=== PATIENT | male | born 1965 | race Caucasian/White ===

== ENCOUNTER 2016-11-21 15:33 | Observation (INO) | payer MEDICAID ==
[~2016-11-21] VITALS: Ht 185.4 cm; Wt 78.6 kg
[2016-11-21] MEDS ORDERED: LISI10TA2 PO (16:06)
[2016-11-21] MEDS ORDERED: ALPR2TAB2 PO (16:06)
[2016-11-21] MEDS ORDERED: TEMA30CA PO (16:06)
[2016-11-21] MEDS ORDERED: CITA40TA12 PO (16:06)
[2016-11-21] MEDS ORDERED: IBUPROFEN 200 MG TABLET PO ONE (16:30)
[2016-11-21] MEDS ORDERED: LORazepam 1MG TABLET PO ONE (16:30)
[2016-11-21] MEDS ORDERED: NICOTINE 14MG/24 HR PATCH.TD24 TD ONE (16:30)
[2016-11-21 16:50] LABS: ASPARTATE AMINO TRANSFERASE 18 U/L (15-37); BLOOD UREA NITROGEN 7 mg/dL (7-18)
[2016-11-21 16:54] LABS: ACETAMINOPHEN < 2 mcg/mL (10-30)
[2016-11-21] MEDS ORDERED: LORazepam 1MG TABLET ONE (17:24)
[2016-11-21] MEDS ORDERED: IBUPROFEN 200 MG TABLET ONE (17:24)
[2016-11-21 17:43] LABS: DAU SCREEN DISCLAIMER
[2016-11-21] MEDS ORDERED: ACETAMINOPHEN 325 MG TABLET ONE (19:55)
[2016-11-21] MEDS ORDERED: ACETAMINOPHEN 325 MG TABLET PO ONE (20:00)
[2016-11-21] MEDS ORDERED: NICOTINE 14MG/24 HR PATCH.TD24 ONE (20:02)
[2016-11-21] MEDS ORDERED: ACETAMINOPHEN 325 MG TABLET PO PRN (23:00)
[2016-11-21] MEDS ORDERED: ENOXAPARIN 40 MG/0.4 ML SQ SCH (23:00)
[2016-11-21] MEDS: NICOTINE 14MG/24 HR PATCH.TD24 TD SCH (23:00)
[2016-11-21] MEDS ORDERED: ONDANSETRON ODT 4 MG PO PRN (23:00)
[2016-11-21 23:17] VITALS: BP 152/96
[2016-11-21] MEDS ORDERED: TEMAZEPAM 15 MG CAPSULE ONE (23:30)
[2016-11-22 08:00] VITALS: BP 146/85
[2016-11-22] MEDS: FOLIC ACID 1 MG TABLET PO SCH (09:15)
[2016-11-22] MEDS: MULTIVITAMIN 1 TABLET PO SCH (09:16)
[2016-11-22] MEDS: THIAMINE 100MG TABLET PO SCH (09:16)
[2016-11-22] MEDS: LISINOPRIL 10 MG TABLET PO SCH (09:16)
[2016-11-22] MEDS: CITALOPRAM 20 MG TABLET PO SCH (09:16)
[2016-11-22] MEDS: ALPRazolam 1MG TABLET PO PRN (12:26)
[2016-11-22 20:17] VITALS: BP 115/76
[2016-11-22] MEDS: ENOXAPARIN 40 MG/0.4 ML SQ SCH (21:00)
[2016-11-22] MEDS ORDERED: TEMAZEPAM 15 MG CAPSULE ONE (21:37)
[2016-11-22] MEDS: NICOTINE 14MG/24 HR PATCH.TD24 TD SCH (23:00)
[2016-11-23] MEDS: THIAMINE 100MG TABLET PO SCH (08:31)
[2016-11-23] MEDS: MULTIVITAMIN 1 TABLET PO SCH (08:31)
[2016-11-23] MEDS: CITALOPRAM 20 MG TABLET PO SCH (08:32)
[2016-11-23] MEDS: LISINOPRIL 10 MG TABLET PO SCH (08:32)
[2016-11-23] MEDS: FOLIC ACID 1 MG TABLET PO SCH (08:32)
[2016-11-23] MEDS: ALPRazolam 1MG TABLET PO PRN ×3 (08:36→21:08)
[2016-11-23 08:39] VITALS: BP 123/75
[2016-11-23 20:28] VITALS: BP 106/67
[2016-11-23] MEDS ORDERED: TEMAZEPAM 15 MG CAPSULE ONE (20:56)
[2016-11-23] MEDS: ENOXAPARIN 40 MG/0.4 ML SQ SCH (21:00)
[2016-11-23] MEDS: NICOTINE 14MG/24 HR PATCH.TD24 TD SCH (21:04)
[2016-11-23] MEDS: TEMAZEPAM 30 MG CAPSULE PO PRN (21:06)
[2016-11-24] MEDS: THIAMINE 100MG TABLET PO SCH (08:21)
[2016-11-24] MEDS: FOLIC ACID 1 MG TABLET PO SCH (08:22)
[2016-11-24] MEDS: LISINOPRIL 10 MG TABLET PO SCH (08:22)
[2016-11-24] MEDS: MULTIVITAMIN 1 TABLET PO SCH (08:22)
[2016-11-24] MEDS: CITALOPRAM 20 MG TABLET PO SCH (08:22)
[2016-11-24] MEDS: ALPRazolam 1MG TABLET PO PRN ×3 (08:26→20:19)
[2016-11-24 08:27] VITALS: BP 157/88
[2016-11-24 08:32] VITALS: BP 111/73
[2016-11-24] MEDS ORDERED: TEMAZEPAM 15 MG CAPSULE ONE (20:16)
[2016-11-24] MEDS: TEMAZEPAM 30 MG CAPSULE PO PRN (20:17)
[2016-11-24] MEDS: NICOTINE 14MG/24 HR PATCH.TD24 TD SCH (20:30)
[2016-11-24] MEDS: ENOXAPARIN 40 MG/0.4 ML SQ SCH (21:00)
[2016-11-24 22:13] VITALS: BP 104/57
[2016-11-25 08:00] VITALS: BP 117/75
[2016-11-25] MEDS: FOLIC ACID 1 MG TABLET PO SCH (08:48)
[2016-11-25] MEDS: CITALOPRAM 20 MG TABLET PO SCH (08:48)
[2016-11-25] MEDS: MULTIVITAMIN 1 TABLET PO SCH (08:48)
[2016-11-25] MEDS: LISINOPRIL 10 MG TABLET PO SCH (08:48)
[2016-11-25] MEDS: THIAMINE 100MG TABLET PO SCH (09:00)
[2016-11-25] MEDS: ALPRazolam 1MG TABLET PO PRN (09:15)
[2016-11-25 19:48] VITALS: BP 106/67
[2016-11-25] MEDS: NICOTINE 14MG/24 HR PATCH.TD24 TD SCH (20:27)
[2016-11-25] MEDS: ENOXAPARIN 40 MG/0.4 ML SQ SCH (21:00)
[2016-11-25] MEDS ORDERED: QUETIAPINE 25MG TABLET PO SCH (21:00)
[2016-11-26 07:52] VITALS: BP 95/61
[2016-11-26] MEDS ORDERED: SERTRALINE 50MG TABLET PO SCH (09:00)
[2016-11-26] MEDS: FOLIC ACID 1 MG TABLET PO SCH (10:34)
[2016-11-26] MEDS: LISINOPRIL 10 MG TABLET PO SCH (10:34)
[2016-11-26] MEDS: THIAMINE 100MG TABLET PO SCH (10:34)
[2016-11-26] MEDS: MULTIVITAMIN 1 TABLET PO SCH (10:36)
[2016-11-26] MEDS ORDERED: QUETIAPINE 100MG TABLET PO SCH (21:00)
== END 2016-11-26 17:00 ==
LOC: ED 18:30 → EDIP 21:14 → INTOOBSV 21:14 → 3E 23:11
PROVIDERS: ADMIT Internal Medicine
DX: R45.851 Suicidal ideations (principal); F33.3 Major depressive disorder, recurrent, severe with psychotic symptoms; F41.1 Generalized anxiety disorder; F10.129 Alcohol abuse with intoxication, unspecified; I10 Essential (primary) hypertension; F13.239 Sedative, hypnotic or anxiolytic dependence with withdrawal, unspecified; F17.210 Nicotine dependence, cigarettes, uncomplicated; F43.10 Post-traumatic stress disorder, unspecified; Z91.19 Patient's noncompliance with other medical treatment and regimen; Z81.8 Family history of other mental and behavioral disorders; Z80.3 Family history of malignant neoplasm of breast
CPT/HCPCS: 36415; 80053; 80307; 80329; 85025; 99285; G0378; G0480

== ENCOUNTER 2017-03-12 12:28 | Emergency (ER) | payer MEDICAID ==
[~2017-03-12] VITALS: Ht 185.4 cm; Wt 85.3 kg
[~2017-03-12 12:28] MED LIST: ALPR2TAB2 PO; CITA40TA12 PO; LISI10TA2 PO; TEMA30CA PO
[2017-03-12 12:32] VITALS: BP 146/97
[2017-03-12] MEDS ORDERED: DIPH,PERTUSS(ACELL),TET VAC/PF 0.5 ML IM-VACC ONE ×2 (13:04→13:30)
== END 2017-03-12 13:13 | disposition home or self-care (01) ==
LOC: ED 13:07
DX: R11.10 Vomiting, unspecified (principal); R19.7 Diarrhea, unspecified; R21 Rash and other nonspecific skin eruption; M77.11 Lateral epicondylitis, right elbow
CPT/HCPCS: 90471; 90715

== ENCOUNTER 2017-04-17 07:56 | Emergency (ER) | payer MEDICAID ==
[~2017-04-17] VITALS: Ht 185.4 cm; Wt 89.0 kg
[2017-04-17 08:02] VITALS: BP 125/86
[2017-04-17] MEDS ORDERED: CYCLOBENZAPRINE 10 MG TABLET PO ONE (08:30)
[2017-04-17] MEDS ORDERED: KETOROLAC 30 MG/1 ML ONE (08:39)
[2017-04-17] MEDS ORDERED: CYCLOBENZAPRINE 10 MG TABLET ONE (08:42)
[2017-04-17] MEDS ORDERED: KETOROLAC 30 MG/1 ML IM ONE (09:00)
== END 2017-04-17 09:52 | disposition home or self-care (01) ==
LOC: ED 08:58
DX: S39.012A Strain of muscle, fascia and tendon of lower back, initial encounter (principal); M54.6 Pain in thoracic spine; I10 Essential (primary) hypertension; F41.9 Anxiety disorder, unspecified; F32.9 Major depressive disorder, single episode, unspecified; X50.1XXA Overexertion from prolonged static or awkward postures, initial encounter; Y93.89 Activity, other specified; Y92.238 Other place in hospital as the place of occurrence of the external cause; Y99.8 Other external cause status
CPT/HCPCS: 96372; 99283; J1885

== ENCOUNTER 2017-06-02 11:39 | Emergency (ER) | payer MEDICAID ==
[~2017-06-02] VITALS: Ht 185.4 cm; Wt 83.1 kg
[2017-06-02 12:14] LABS: BASOPHILS # (AUTO) 0.03 x10^3/uL (0-0.1); BASOPHILS % (AUTO) 0 % (0-1); EOSINOPHILS # (AUTO) 0.22 x10^3/uL (0-0.4); EOSINOPHILS % (AUTO) 2 % (1-7); LYMPHOCYTES # (AUTO) 3.96 x10^3/uL (1-3.4); LYMPHOCYTES % (AUTO) 38 % (22-44); MD NO; MEAN CORPUSCULAR HEMOGLOBIN 31.8 pg (27.5-34.5); MEAN CORPUSCULAR HGB CONC 34.4 g/dL (33.2-36.2); MEAN CORPUSCULAR VOLUME 92.4 fL (81-97); MEAN PLATELET VOLUME 8.4 fL (7.4-10.4); MONOCYTES # (AUTO) 0.56 x10^3/uL (0.2-0.8); MONOCYTES % (AUTO) 5 % (2-9); NEUTROPHILS # (AUTO) 5.68 x10^3/uL (1.8-6.8); NEUTROPHILS % (AUTO) 54 % (42-75); PLATELET COUNT 198 x10^3/uL (130-400); RED BLOOD COUNT 5.43 x10^6/uL (4.38-5.82); RED CELL DISTRIBUTION WIDTH 13.8 % (9.4-14.8)
[2017-06-02 12:33] LABS: ANION GAP 7 mmol/L (5-15); CALCIUM 8.7 mg/dL (8.5-10.1); CHLORIDE 102 mmol/L (98-107); CREATININE 1.13 mg/dL (0.7-1.3)
[2017-06-02] MEDS ORDERED: SODIUM CHLORIDE 0.9% 1,000 ML IV ONE (13:52)
[2017-06-02] MEDS ORDERED: SODIUM CHLORIDE 0.9% 1,000ML IVBOLUS ONE (14:00)
[2017-06-02] MEDS ORDERED: SODIUM CHLORIDE FLUSH 10ML SYR IVF ONE (14:00)
[2017-06-02 15:46] VITALS: BP 122/91
== END 2017-06-02 15:48 | disposition home or self-care (01) ==
LOC: ED 14:20
DX: K25.9 Gastric ulcer, unspecified as acute or chronic, without hemorrhage or perforation (principal); R55 Syncope and collapse; R07.89 Other chest pain; R41.9 Unspecified symptoms and signs involving cognitive functions and awareness; F32.9 Major depressive disorder, single episode, unspecified; I10 Essential (primary) hypertension
CPT/HCPCS: 36415; 71046; 80048; 85025; 93005; 96360; 99285; J7030

== ENCOUNTER 2018-02-28 11:17 | Emergency (ER) | payer MEDICAID ==
[~2018-02-28] VITALS: Ht 185.4 cm; Wt 87.0 kg
[2018-02-28 12:31] LABS: RAPID INFLUENZA A Negative (Negative); RAPID INFLUENZA B Negative (Negative)
[2018-02-28 13:43] VITALS: BP 121/90
== END 2018-02-28 13:45 | disposition home or self-care (01) ==
LOC: ED 13:39
DX: J02.8 Acute pharyngitis due to other specified organisms (principal); B34.9 Viral infection, unspecified; I10 Essential (primary) hypertension
CPT/HCPCS: 87400; 99284

== ENCOUNTER 2018-12-17 09:13 | Inpatient (IN) | payer BC, MEDICAID ==
[~2018-12-17] VITALS: Ht 185.4 cm; Wt 82.6 kg
--- NOTE | 2018-12-17 09:43 | NUR ---
PT C/O CHEST PAIN THAT IS IN HIS LEFT CHEST AND RADIATES TO HIS L ARM, IT IS A 10/10. PER PT, THE PAIN STARTED LAST NIGHT AROUND 2300. PT ALSO COMPLAINS OF PERIODS OF NOT BEING ABLE TO CATCH HIS BREATH. 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 EKG DONE.
[2018-12-17] MEDS ORDERED: ASPIRIN 81 MG TABLET CHEW ONE (09:52)
[2018-12-17] MEDS ORDERED: NITROGLYCERIN SINGLE TAB 0.4 MG SL ONE (09:52)
[2018-12-17] MEDS ORDERED: NITROGLYCERIN SINGLE TAB 0.4 MG SL PRN (10:00)
[2018-12-17] MEDS ORDERED: ASPIRIN 81 MG TABLET CHEW PO ONE (10:00)
--- NOTE | 2018-12-17 10:03 | NUR ---
PT BP IS CONSISTANTLY AROUND 105 SYSTOLIC, I REPORTED THIS TO THE PROVIDER AND ASKED IF HE WANTED ME TO GIVE THE NITRO. BINU SAID YES, GIVE A NITRO.
[2018-12-17 10:08] LABS: BASOPHILS # (AUTO) 0.05 x10^3/uL (0-0.1); BASOPHILS % (AUTO) 1 % (0-1); EOSINOPHILS # (AUTO) 0.16 x10^3/uL (0-0.4); EOSINOPHILS % (AUTO) 2 % (1-7); LYMPHOCYTES # (AUTO) 2.99 x10^3/uL (1-3.4); LYMPHOCYTES % (AUTO) 41 % (22-44); MD NO; MEAN CORPUSCULAR HEMOGLOBIN 34.6 pg (27.5-34.5); MEAN CORPUSCULAR HGB CONC 33.9 g/dL (33.2-36.2); MEAN CORPUSCULAR VOLUME 102.2 fL (81-97); MEAN PLATELET VOLUME 7.8 fL (7.4-10.4); MONOCYTES # (AUTO) 0.67 x10^3/uL (0.2-0.8); MONOCYTES % (AUTO) 9 % (2-9); NEUTROPHILS # (AUTO) 3.44 x10^3/uL (1.8-6.8); NEUTROPHILS % (AUTO) 47 % (42-75); PLATELET COUNT 154 x10^3/uL (130-400); RED BLOOD COUNT 4.61 x10^6/uL (4.38-5.82); RED CELL DISTRIBUTION WIDTH 15.4 % (9.4-14.8)
[2018-12-17 10:19] LABS: ALBUMIN 3.6 g/dL (3.4-5.0); ANION GAP 8 mmol/L (5-15); CALCIUM 8.1 mg/dL (8.5-10.1); CHLORIDE 115 mmol/L (98-107)
--- NOTE | 2018-12-17 10:21 | NUR ---
PT REPORTS NO CHANGE IN PAIN. MD NOTIFIED.
[2018-12-17 10:25] LABS: ALANINE AMINOTRANSFERASE 38 U/L (12-78); ALKALINE PHOSPHATASE 58 U/L (45-117); BILIRUBIN,TOTAL 1.2 mg/dL (0.2-1.0); CREATININE 0.99 mg/dL (0.7-1.3); TOTAL PROTEIN 6.5 g/dL (6.4-8.2); TROPONIN I 0.171 ng/mL (0.000-0.045)
[2018-12-17] MEDS ORDERED: morphine SULFATE 10 MG/ML, 1ML IVPush PRN (12:00)
[2018-12-17] MEDS ORDERED: ONDANSETRON ODT 4 MG PO PRN (12:00)
[2018-12-17] MEDS ORDERED: ONDANSETRON 2MG/ML, 2ML IVPush PRN (12:00)
[2018-12-17] MEDS ORDERED: NITROGLYCERIN 0.4 MG BOTTLE (25 TABS) SL PRN (12:00)
[2018-12-17] MEDS ORDERED: NITROGLYCERIN 0.4 MG/SPRAY SL PRN (12:00)
[2018-12-17] MEDS ORDERED: SODIUM CHLORIDE FLUSH 10ML SYR IVF PRN (12:00)
--- NOTE | 2018-12-17 12:08 | NUR ---
PT SITTING IN BED RESTING, NAD. VSS.
[2018-12-17] MEDS ORDERED: MORPHINE SULFATE 4 MG/ML, 1ML ONE (12:12)
--- NOTE | 2018-12-17 12:20 | NUR ---
PT MEDICATED FOR PAIN. PT DENIES ANY NEEDS AT THIS TIME. VSS.
[2018-12-17 12:46] LABS: D-DIMER 0.37 ug/mlFEU (0.00-0.52)
[2018-12-17] MEDS ORDERED: HEPARIN 5,000 UNITS/ML, 1ML IV ONE (13:00)
[2018-12-17 13:15] LABS: HEMOGLOBIN A1C 4.8 % (4.2-6.3)
[2018-12-17 13:19] VITALS: BP 114/84
[2018-12-17 13:30] LABS: TROPONIN I 0.116 ng/mL (0.000-0.045)
[2018-12-17] MEDS ORDERED: HYDROmorphone 2 MG/ML, 1ML ONE (13:38)
[2018-12-17] MEDS: HYDROmorphone 2 MG/ML, 1ML IV PRN (13:47)
[2018-12-17] MEDS: HEPARIN 25,000 UNITS/500ML PMX 500 ML IV PRN (13:51)
[2018-12-17 19:50] VITALS: BP 137/86
[2018-12-17 19:59] VITALS: BP 100/63
[2018-12-17] MEDS: TEMAZEPAM 30 MG CAPSULE PO SCH (21:00)
[2018-12-17] MEDS ORDERED: TEMAZEPAM 15 MG CAPSULE ONE (21:00)
[2018-12-17] MEDS: HEPARIN 5,000 UNITS/ML, 1ML IV PRN (21:05)
[2018-12-18 01:17] VITALS: BP 105/72
[2018-12-18 03:27] LABS: BASOPHILS # (AUTO) 0.05 x10^3/uL (0-0.1); BASOPHILS % (AUTO) 1 % (0-1); EOSINOPHILS % (AUTO) 4 % (1-7); LYMPHOCYTES # (AUTO) 2.92 x10^3/uL (1-3.4); LYMPHOCYTES % (AUTO) 52 % (22-44); MD NO; MEAN CORPUSCULAR HEMOGLOBIN 34.9 pg (27.5-34.5); MEAN CORPUSCULAR HGB CONC 33.6 g/dL (33.2-36.2); MEAN CORPUSCULAR VOLUME 104.1 fL (81-97); MEAN PLATELET VOLUME 8.1 fL (7.4-10.4); MONOCYTES # (AUTO) 0.46 x10^3/uL (0.2-0.8); MONOCYTES % (AUTO) 8 % (2-9); NEUTROPHILS % (AUTO) 36 % (42-75); PLATELET COUNT 118 x10^3/uL (130-400); RED BLOOD COUNT 4.13 x10^6/uL (4.38-5.82); RED CELL DISTRIBUTION WIDTH 15.7 % (9.4-14.8)
[2018-12-18 03:38] LABS: ANION GAP 7 mmol/L (5-15); CALCIUM 8.1 mg/dL (8.5-10.1); CHLORIDE 111 mmol/L (98-107)
[2018-12-18 03:49] LABS: ALANINE AMINOTRANSFERASE 31 U/L (12-78); ALKALINE PHOSPHATASE 49 U/L (45-117); BILIRUBIN,TOTAL 1.1 mg/dL (0.2-1.0); CHOL/HDL RATIO 2.3; CHOLESTEROL, TOTAL 107 mg/dL (140-239); CREATININE 0.92 mg/dL (0.7-1.3); HDL CHOL % 43 % (26-37); HDL CHOLESTEROL (DIRECT) 46 mg/dL (40-60); LDL CHOLESTEROL,CALCULATED 32 mg/dL (54-169); LDL/HDL RATIO 0.7 (0.5-3.0); TOTAL PROTEIN 5.7 g/dL (6.4-8.2); TRIGLYCERIDES 146 mg/dL (50-200); VLDL CHOLESTEROL 29 mg/dL (0-25)
[2018-12-18] MEDS: ASPIRIN 325 MG TABLET PO SCH (06:04)
[2018-12-18 07:35] VITALS: BP 119/82
[2018-12-18] MEDS: PANTOPROZOLE 40MG TABLET PO SCH (08:31)
[2018-12-18] MEDS ORDERED: LISINOPRIL 10 MG TABLET PO SCH (09:00)
[2018-12-18] MEDS: HEPARIN 5,000 UNITS/ML, 1ML IV PRN ×2 (10:43→18:36)
[2018-12-18] MEDS ORDERED: REGADENOSON 0.4 MG/5 ML SYRINGE ONE (11:28)
[2018-12-18 13:34] VITALS: BP 110/73
[2018-12-18] MEDS: HEPARIN 25,000 UNITS/500ML PMX 500 ML IV PRN (14:45)
[2018-12-18 19:20] VITALS: BP 116/73
[2018-12-18] MEDS: HYDROmorphone 2 MG/ML, 1ML IV PRN (19:46)
[2018-12-18] MEDS ORDERED: TEMAZEPAM 15 MG CAPSULE ONE (21:43)
[2018-12-18] MEDS: TEMAZEPAM 30 MG CAPSULE PO SCH (21:45)
[2018-12-19 01:54] VITALS: BP 101/65
[2018-12-19] MEDS: ASPIRIN 325 MG TABLET PO SCH (05:42)
[2018-12-19 07:35] VITALS: BP 116/76
[2018-12-19] MEDS ORDERED: METOPROLOL TARTRATE 25 MG TABLET PO SCH (08:00)
[2018-12-19] MEDS: PANTOPROZOLE 40MG TABLET PO SCH (08:44)
[2018-12-19] MEDS ORDERED: ISOSORBIDE MONONITRATE ER 30 MG TABLET PO SCH (09:00)
[2018-12-19] MEDS ORDERED: ATOR40TA78 PO (11:13)
[2018-12-19] MEDS ORDERED: ASPI-191 PO (11:13)
[2018-12-19] MEDS ORDERED: METO25TA35 PO (11:13)
[2018-12-19] MEDS ORDERED: ISOS30TA8 PO (11:13)
[2018-12-19] MEDS ORDERED: ATORVASTATIN 40 MG TABLET PO SCH (21:00)
== END 2018-12-19 11:54 | disposition home or self-care (01) | DRG 313 ==
LOC: ED 10:29 → EDIP 11:57 → 5SO 12:50
PROVIDERS: ADMIT Internal Medicine; ATTEND Internal Medicine
DX: R07.2 Precordial pain (principal); F32.9 Major depressive disorder, single episode, unspecified; E78.5 Hyperlipidemia, unspecified; F41.9 Anxiety disorder, unspecified; D69.6 Thrombocytopenia, unspecified; D75.89 Other specified diseases of blood and blood-forming organs; F12.90 Cannabis use, unspecified, uncomplicated; I10 Essential (primary) hypertension; I25.10 Atherosclerotic heart disease of native coronary artery without angina pectoris; Z79.899 Other long term (current) drug therapy; Z82.49 Family history of ischemic heart disease and other diseases of the circulatory system; Z72.0 Tobacco use
CPT/HCPCS: 36415; 71045; 78452; 80053; 80061; 83036; 84443; 84484; 85025; 85379; 85520; 93005; 93017; 93306; 96374; 99285; G0378; J1170; J1644; J2785; A9502; J2270

== ENCOUNTER 2018-12-23 17:05 | Inpatient (IN) | payer BC ==
[~2018-12-23] VITALS: Ht 185.4 cm; Wt 79.6 kg
[2018-12-24 13:16] VITALS: BP 116/76
== END 2018-12-24 16:21 | disposition home or self-care (01) | DRG 287 ==
LOC: ED 18:10 → EDIP 21:01 → 5SO 22:21
PROVIDERS: ADMIT Family Medicine; ATTEND Family Medicine
PROC: 4A023N7 Measurement of Cardiac Sampling and Pressure, Left Heart, Percutaneous Approach (ICD-10-PCS; principal; 2018-12-24)
PROC: B2151ZZ Fluoroscopy of Left Heart using Low Osmolar Contrast (ICD-10-PCS; 2018-12-24)
PROC: B2111ZZ Fluoroscopy of Multiple Coronary Arteries using Low Osmolar Contrast (ICD-10-PCS; 2018-12-24)
DX: R07.89 Other chest pain (principal); F10.20 Alcohol dependence, uncomplicated; F12.90 Cannabis use, unspecified, uncomplicated; I10 Essential (primary) hypertension; I25.2 Old myocardial infarction; Y90.6 Blood alcohol level of 120-199 mg/100 ml; Z63.8 Other specified problems related to primary support group; Z72.0 Tobacco use; Z82.49 Family history of ischemic heart disease and other diseases of the circulatory system
CPT/HCPCS: 36415; 71045; 80053; 80307; 83690; 83880; 84484; 85025; 85520; 93005; 93458; 96374; 96376; 99156; 99291; C1769; C1894; G0378; J0583; J0610; J1644; J2250; J3010; J2270; J7030; Q9967

== ENCOUNTER → 2019-05-16 | Outpatient (CLI) | payer BC ==
[~2019-05-16] MED LIST changes: +ASPI-191 PO; +ATOR40TA78 PO; +ISOS30TA8 PO; +METO25TA35 PO
== END | disposition home or self-care (01) ==
LOC: CFH 07:03
PROVIDERS: ATTEND Nurse Practitioner
CPT/HCPCS: 76700

== ENCOUNTER 2019-09-25 17:42 | Emergency (ER) | payer BC ==
[~2019-09-25] VITALS: Ht 185.4 cm; Wt 63.6 kg
[~2019-09-25 17:42] MED LIST changes: +VALS40TA2 PO
--- NOTE | 2019-09-25 18:19 | NUR ---
PT TO ROOM 36 PER PEDIS. PT COMES IN TODAY WITH C/O ABDOMINAL PAIN, AND SOB. PT STATES "MY DOCTOR GAVE ME PAIN MEDS, BUT THEY ARE GONE. I THINK THEY ARE GOING TO TAKE MY GALBLADDER ON September. I DID HAVE A DRINK YESTERDAY" PT IS A/O X3, BUT HAS VERY SLOW SPEECH AND MOVEMENTS. PT HAS TO THINK HARD FOR HIS ANSWERS. STROKE SCALE IS NEGATIVE. PT COLLECTING URINE FOR RN TO TEST. PT PLACED ON MONITOR, PUT IN GOWN AND INSTRUCTED [employer]IC [employer]ESSIONALS LIGHT USE. PT STILL CONTINUES TO ASK FOR PAIN MEDICATIONS FOR HIS STOMACHE.
[2019-09-25] MEDS ORDERED: HYDROmorphone 1 MG/ML, 1ML INJ IM STA (18:59)
[2019-09-25] MEDS ORDERED: MAALOX/HYOSCYAMINE/LIDOCAINE 45 ML BTL PO ONE (19:00)
[2019-09-25] MEDS ORDERED: HYDROmorphone 2 MG/ML, 1ML ONE ×2 (19:21→20:13)
[2019-09-25] MEDS ORDERED: MAALOX/HYOSCYAMINE/LIDOCAINE 45 ML BTL ONE (19:21)
--- NOTE | 2019-09-25 19:37 | NUR ---
IV STARTED AND PAIN MEDICATION ADMINISTERED. XRAY DONE, BLOOD DRAWN AND SENT. PT STABLE, STATES DILAUDID REDUCED PAIN.
[2019-09-25 20:30] VITALS: BP 110/68
[2019-09-25 20:34] LABS: BASOPHILS # (AUTO) 0.04 x10^3/uL (0-0.1); BASOPHILS % (AUTO) 1 % (0-1); EOSINOPHILS # (AUTO) 0.17 x10^3/uL (0-0.4); EOSINOPHILS % (AUTO) 3 % (1-7); LYMPHOCYTES % (AUTO) 52 % (22-44); MD NO; MEAN CORPUSCULAR HEMOGLOBIN 35.3 pg (27.5-34.5); MEAN CORPUSCULAR HGB CONC 34.4 g/dL (33.2-36.2); MEAN CORPUSCULAR VOLUME 102.6 fL (81-97); MEAN PLATELET VOLUME 7.7 fL (7.4-10.4); MONOCYTES # (AUTO) 0.33 x10^3/uL (0.2-0.8); MONOCYTES % (AUTO) 5 % (2-9); NEUTROPHILS # (AUTO) 2.37 x10^3/uL (1.8-6.8); NEUTROPHILS % (AUTO) 40 % (42-75); PLATELET COUNT 111 x10^3/uL (130-400); RED BLOOD COUNT 4.53 x10^6/uL (4.38-5.82); RED CELL DISTRIBUTION WIDTH 13.5 % (9.4-14.8)
[2019-09-25 20:46] LABS: ALANINE AMINOTRANSFERASE 92 U/L (12-78); ALBUMIN 3.3 g/dL (3.4-5.0); ANION GAP 8 mmol/L (5-15); CALCIUM 8.5 mg/dL (8.5-10.1); CHLORIDE 108 mmol/L (98-107); CREATININE 0.83 mg/dL (0.7-1.3)
[2019-09-25 20:48] LABS: ALKALINE PHOSPHATASE 78 U/L (45-117); BILIRUBIN,TOTAL 1.5 mg/dL (0.2-1.0)
--- NOTE | 2019-09-25 20:51 | NUR ---
LAB AND URINE RE-DONE DUE TO LABEL MISHAP. PT GIVEN ADDITIONAL IV PAIN MEDICATIONS. PT WAITING FOR US. WILL CONTINUE TO MONITOR.
--- NOTE | 2019-09-25 21:06 | NUR ---
PT BLOOD PRESSURE 85/61 X2 CYCLES. RN IN TO ASSESS PATIENT, PT HAD ARMS BENT AND CUFF WAS NOT ON CORRECTLY. RN FIXES CUFF AND RECHECKS BLOOD PRESSURE. BLOOD PRESSURE 113 SBP. PT DENIES PAIN, STATES "I FEEL FUNNY, AND I WANT TO SHAKE MY HANDS. I THOUGHT I WAS AT HOME." RN TALKS WITH PATIENT, AND FINDS THAT PATIENT HAD FALLEN ASLEEP, AND WAS CONFUSED UPON INITIAL AWAKENING. WILL REPORT TO NOC RN PATIENT STATUS.
--- NOTE | 2019-09-25 21:12 | NUR ---
REPORT OF PT FROM RN JARAD AND ASSUMING CARE OF PT AT THIS TIME.
== END 2019-09-25 22:20 | disposition home or self-care (01) ==
LOC: ED 18:31
DX: K29.20 Alcoholic gastritis without bleeding (principal); I10 Essential (primary) hypertension; I25.2 Old myocardial infarction; E78.5 Hyperlipidemia, unspecified; Z90.49 Acquired absence of other specified parts of digestive tract; F17.200 Nicotine dependence, unspecified, uncomplicated
CPT/HCPCS: 36415; 71045; 76700; 80053; 83690; 85025; 96372; 99285; J1170

== ENCOUNTER 2019-11-25 14:37 | Emergency (ER) | payer BC ==
[~2019-11-25] VITALS: Ht 185.4 cm; Wt 69.1 kg
--- NOTE | 2019-11-25 15:03 | NUR ---
Pt reports his roomate currently is hospitlized from COVID 19 complications.
--- NOTE | 2019-11-25 15:07 | NUR ---
Pt arrives to ed with loss of appetitie and loss of weight in past two months. Pt also reports severe diarrhea and not resolving. Pts pants do have stool on them. Pt reports he feels so weak and dehydrated. Pt reports that he feels like passing out. Pt is tachycardic and appears to work to breathe when ambulating. Assisted into a gown and placed on monitors and call light in reach. Awaiting further orders.
[2019-11-25] MEDS ORDERED: SODIUM CHLORIDE 0.9% 1,000ML IVBOLUS ONE (15:30)
[2019-11-25] MEDS ORDERED: SODIUM CHLORIDE FLUSH 10ML SYR IVF ONE (15:30)
[2019-11-25] MEDS ORDERED: ONDANSETRON 2MG/ML, 2ML IVPush ONE (15:30)
[2019-11-25] MEDS ORDERED: ONDANSETRON 2MG/ML, 2ML ONE (15:37)
[2019-11-25] MEDS ORDERED: MORPHINE SULFATE 4 MG/ML, 1ML ONE ×2 (15:37→16:32)
[2019-11-25 15:43] LABS: BASOPHILS # (AUTO) 0.04 x10^3/uL (0-0.1); BASOPHILS % (AUTO) 1 % (0-1); EOSINOPHILS # (AUTO) 0.12 x10^3/uL (0-0.4); EOSINOPHILS % (AUTO) 2 % (1-7); LYMPHOCYTES # (AUTO) 2.68 x10^3/uL (1-3.4); LYMPHOCYTES % (AUTO) 37 % (22-44); MD NO; MEAN CORPUSCULAR HEMOGLOBIN 36.4 pg (27.5-34.5); MEAN CORPUSCULAR HGB CONC 34.6 g/dL (33.2-36.2); MEAN PLATELET VOLUME 8.6 fL (7.4-10.4); MONOCYTES # (AUTO) 0.81 x10^3/uL (0.2-0.8); MONOCYTES % (AUTO) 11 % (2-9); NEUTROPHILS # (AUTO) 3.56 x10^3/uL (1.8-6.8); NEUTROPHILS % (AUTO) 49 % (42-75); PLATELET COUNT 202 x10^3/uL (130-400); RED BLOOD COUNT 4.59 x10^6/uL (4.38-5.82); RED CELL DISTRIBUTION WIDTH 12.7 % (9.4-14.8)
[2019-11-25] MEDS: MORPHINE SULFATE 4 MG/ML, 1ML IVPush PRN ×2 (15:44→16:34)
[2019-11-25 15:46] LABS: ALANINE AMINOTRANSFERASE 27 U/L (12-78); ALBUMIN 3.8 g/dL (3.4-5.0); ANION GAP 14 mmol/L (5-15); CALCIUM 9.9 mg/dL (8.5-10.1); CHLORIDE 87 mmol/L (98-107); CREATININE 1.04 mg/dL (0.7-1.3)
[2019-11-25 15:48] LABS: ALKALINE PHOSPHATASE 98 U/L (45-117); BILIRUBIN,TOTAL 1.1 mg/dL (0.2-1.0); TOTAL PROTEIN 8.2 g/dL (6.4-8.2)
--- NOTE | 2019-11-25 15:49 | NUR ---
Pt medicated per emar for pain and nausea.
--- NOTE | 2019-11-25 16:17 | NUR ---
CT called for precautions warning and ETA for CT
[2019-11-25 16:52] LABS: MICROSCOPIC INDICATED
[2019-11-25] MEDS ORDERED: OMNIPAQUE 350 MG/ML, 100ML BOTTLE ONE (17:05)
--- NOTE | 2019-11-25 17:06 | NUR ---
Pt medicated for pain.
--- NOTE | 2019-11-25 17:19 | NUR ---
Chart up for recheck.
[2019-11-25 17:37] VITALS: BP 94/65
--- NOTE | 2019-11-25 18:07 | NUR ---
Patient/Caregiver given discharge instructions and they have confirmed that they understand the instructions. Patient ambulatory with steady gait.
== END 2019-11-25 18:08 | disposition home or self-care (01) ==
LOC: ED 15:24
DX: R10.84 Generalized abdominal pain (principal); R19.7 Diarrhea, unspecified; R00.0 Tachycardia, unspecified; R11.2 Nausea with vomiting, unspecified; I10 Essential (primary) hypertension; E78.5 Hyperlipidemia, unspecified; I25.2 Old myocardial infarction; Z90.89 Acquired absence of other organs
CPT/HCPCS: 36415; 74177; 80053; 81001; 83690; 85025; 93005; 96374; 96375; 96376; 99285; J2270; J2405; J7030; Q9967